=== PATIENT | male | born 1950 | race Hispanic/Latino ===

== ENCOUNTER → 2019-01-14 | Outpatient (CLI) | payer MEDICARE, OTHER ==
--- NOTE | 2019-01-14 11:53 | Diagnostic Imaging Report ---
EXAM: Cervical spine radiographs-7 views INDICATION: Status post trauma. COMPARISON: None FINDINGS: BONES: C1-C7 are visualized on the lateral view. No evidence of traumatic malalignment. There is minimal retrolisthesis of C4 on C5. No evidence of acute displaced fractures. Vertebral body heights are preserved. DISCS: Moderate degenerative disc changes at C3-C4 and mild multilevel degenerative disc changes elsewhere. JOINTS: Mild facet degenerative changes. Bilateral right greater than left neural foraminal stenosis at C2-C5. SOFT TISSUES: Unremarkable IMPRESSION: No evidence of acute traumatic abnormality. If there is clinical concern, CT of the cervical spine would be more sensitive for evaluation. Mild to moderate degenerative disc changes of the cervical spine. Signed by: Dr. Reece Duran MD on 01/14/2019 11:50 AM
== END ==
LOC: RAD 10:19
PROVIDERS: ATTEND Family Medicine
DX: S14.109A Unspecified injury at unspecified level of cervical spinal cord, initial encounter (principal)
CPT/HCPCS: 72050

== ENCOUNTER 2019-02-09 16:26 | Emergency (ER) | payer MEDICARE, OTHER ==
[~2019-02-09] VITALS: Ht 160 cm; Wt 68.0 kg
--- OUTSIDE RECORDS SUMMARY | 2019-02-09 16:29 | XMS REPORT ---
[facility] Address Unknown Phone Unavailable Care Team Providers Care Supervisor [employer] Name Role Phone CURTIS CAMARGO Unavailable Unavailable Problems This patient has no known problems. Allergies, Adverse Reactions, Alerts This patient has no known allergies or adverse reactions. Medications This patient has no known medications. Results Test Description Test Time Test Comments Text Results Atomic Results Result Comments CT BRAIN WO 2019-02-09 15:39:00 [place] [address] Patient Name: JACKY RAMSAY MR #: [id number] : 1950 Age/Sex: 68/M Req #: [id number] Adm Physician: Ordered by: CATALINA MAKI, CURTIS Ba MD Report #: [id number] Location: CT Room/Bed: Procedure: [id number] CT/CT BRAIN WO Exam Date: 02/09/19 Exam Time: 1508 REPORT STATUS: Signed CT BRAIN WO HISTORY: Left-sided weakness COMPARISON: None. TECHNIQUE: Noncontrast axial scans were obtained from skull base to the vertex. Coronal and sagittal reconstructions obtained from the axial data. One or more of the following dose reduction techniques were used: Automated exposure control, adjustment of the mA and/or kV according to patient size, and/or utilization of iterative reconstruction technique. DISCUSSION: Scalp/Skull: Unremarkable. Extra-axial spaces: An approximately 2.4 cm thick heterogeneous, isodense (relative to brain parenchyma) right hemispheric subdural collection results in up to 11 mm of right to left midline shift and mild right uncal herniation. Similar smaller 0.4 cm thick left hemispheric subdural isodense collection is also present. Brain sulci: The right hemispheric sulci are effaced. Underlying mild generalized cerebral volume loss is suspected. Ventricles: The supratentorial ventricles are displaced towards the left. The right lateral ventricle and third ventricle are slightly effaced. The fourth ventricle is unremarkable. Parenchyma: Multiple old small lacunar infarcts in the right carpenter radiata are present. Mild periventricular white matter hypodensities are likely chronic microvascular ischemic changes. Carotid siphon calcifications are present. Otherwise, no mass, parenchymal hemorrhage, or large vascular territory acute infarct. Dural sinuses: No abnormal densities. Sellar/Suprasellar region: Intact. Skull base: Intact. Incidental findings: Mild scattered paranasal sinus mucosal thickening is present. IMPRESSION: 1. Large, 2.4 cm thick right hemispheric heterogeneous, isodense subdural collection is likely a subacute subdural hematoma. This results in 11 mm of right to left midline shift and mild right uncal herniation. 2. Similar, smaller 0.4 cm thick left hemispheric subdural collection also may be a subacute subdural hematoma. 3. Otherwise, no acute intracranial abnormalities. 4. Mild generalized cerebral volume loss. Mild supratentorial chronic microvascular ischemic change. 5. Multiple old small lacunar infarcts in the right carpenter radiata. Findings discussed with Dr. Camargo at 3:53 PM on 02/09/2019 (by Dr. Brown). Signed by: Dr. Nagi Brown M.D. on 02/09/2019 3:54 PM Dictated By: NAGI BROWN MD [id number] Transcribed By: YARELY on 02/09/19 [id number] COPY TO: CURTIS CAMARGO CERVICAL SPINE 4 OR 5 VIEWS 2019-01-14 11:43:00 [place] [address] Patient Name: JACKY RAMSAY MR #: [id number] : 1950 Age/Sex: 68/M Req #: [id number] Adm Physician: Ordered by: CURTIS CAMARGO MD, MD Report #: [id number] Location: [facility] Room/Bed: Procedure: [id number] DX/CERVICAL SPINE 4 OR 5 VIEWS Exam Date: 01/14/19 Exam Time: 1056 REPORT STATUS: Signed EXAM: Cervical spine radiographs-7 views INDICATION: Status post trauma. COMPARISON: None FINDINGS: BONES: C1-C7 are visualized on the lateral view. No evidence of traumatic malalignment. There is minimal retrolisthesis of C4 on C5. No evidence of acute displaced fractures. Vertebral body heights are preserved. DISCS: Moderate degenerative disc changes at C3-C4 and mild multilevel degenerative disc changes elsewhere. JOINTS: Mild facet degenerative changes. Bilateral right greater than left neural foraminal stenosis at C2-C5. SOFT TISSUES: Unremarkable IMPRESSION: No evidence of acute traumatic abnormality. If there is clinical concern, CT of the cervical spine would be more sensitive for evaluation. Mild to moderate degenerative disc changes of the cervical spine. Signed by: Dr. Papa Hinojosa MD on 01/14/2019 11:50 AM Dictated By: PAPA HINOJOSA MD [id number] Transcribed By: YARELY on 01/14/19 1155 COPY TO: CURTIS CAMARGO
--- NOTE | 2019-02-09 16:42 | NUR ---
PATIENT TRANSPORTED TO ER ROOM 3 VIA WHEELCHAIR. CONNECTED TO BEDSIDE ELECTRICIAN POWERHOUSE, NIBP AND SPO2. DR SZYMANSKI AWARE. DR SZYMANSKI EDUCATED PATIENT AND FAMILY ON THE CURRENT PLAN OF CARE,TO BE TRANFERRED FOR HIGHER LEVEL OF CARE,VERBALIZED UNDERSTANDING.
[2019-02-09 16:58] LABS: BASOPHILS % 0.5 % (0.0-1.0); EOSINOPHILS # (AUTO) 0.3 (0.0-0.4); EOSINOPHILS % 3.9 % (0.0-6.0); HEMOGLOBIN 16.2 g/dL (14.0-18.0); LYMPHOCYTES # (AUTO) 1.2 (1.0-3.2); LYMPHOCYTES % 15.2 % (18.0-39.1); MEAN CORPUSCULAR HEMOGLOBIN 30.3 pg (28-32); MEAN CORPUSCULAR HGB CONC 35.2 g/dL (31-35); MONOCYTES # (AUTO) 0.7 (0.2-0.8); MONOCYTES % 9.2 % (4.4-11.3); NEUTROPHILS # (AUTO) 5.7 (2.1-6.9); PLATELET COUNT 317 x10e3/uL (140-360); RED BLOOD COUNT 5.35 x10e6/uL (4.3-5.7); RED CELL DISTRIBUTION WIDTH 12.5 % (11.7-14.4)
[2019-02-09 17:06] LABS: INR 0.87; PROTHROMBIN TIME 12.3 seconds (11.9-14.5)
[2019-02-09 17:14] LABS: ALANINE AMINOTRANSFERASE 18 IU/L (0-55); ALBUMIN 4.3 g/dL (3.5-5.0); ALBUMIN/GLOBULIN RATIO 1.3 (0.8-2.0); ALKALINE PHOSPHATASE 86 IU/L (40-150); ANION GAP 15.5 mmol/L (8-16); BLOOD UREA NITROGEN 11 mg/dL (7-26); BUN/CREATININE RATIO 11 (6-25); CALCIUM 9.7 mg/dL (8.4-10.2); CARBON DIOXIDE 22 mmol/L (22-29); CHLORIDE 99 mmol/L (98-107); CREATININE, SERUM 0.96 mg/dL (0.72-1.25); EST GLOMERULAR FILTRATION RATE > 60 ML/MIN (60-); GLUCOSE 97 mg/dL (74-118); POTASSIUM 4.5 mmol/L (3.5-5.1); SODIUM 132 mmol/L (136-145)
--- NOTE | 2019-02-09 17:30 | NUR ---
PATIENT AWAKE AND ALERT SITTING IN BED. RESP EVEN AND UNLABORED. SKIN WARM AND DRY. FAMILY AT BEDSIDE.
--- NOTE | 2019-02-09 17:49 | NUR ---
NOTIFIED [facility] FOR PAITENT TRANSPORT TO [facility] [facility], SPOKE WITH BELEM.
--- NOTE | 2019-02-09 17:55 | NUR ---
REPORT CALLED TO [facility], [address] [place] [address] [phone] [phone], SPOKE WITH KARLA LAWTON.
--- NOTE | 2019-02-09 18:05 | NUR ---
NOTIFIED [facility] TO MAKE RADIOLOGY DISC FOR TRANSPORT.
--- NOTE | 2019-02-09 18:14 | NUR ---
NOTIFIED KARLA NATH, [facility], [facility] 4 [address][phone], PATIENT FAMILY REQUESTING PATIENT NOT TO RECEIVE BLOOD PRODUCTS.
--- NOTE | 2019-02-09 19:42 | NUR ---
[facility] HERE ON SITE FOR TRANSFER TO [facility].
[2019-02-09 19:46] VITALS: BP 130/64
== END 2019-02-09 19:47 | disposition short-term general hospital (02) ==
LOC: ER 16:26
DX: R53.1 Weakness (principal); S06.5X0A Traumatic subdural hemorrhage without loss of consciousness, initial encounter; W18.30XA Fall on same level, unspecified, initial encounter; Y92.008 Other place in unspecified non-institutional (private) residence as the place of occurrence of the external cause; I10 Essential (primary) hypertension; E87.1 Hypo-osmolality and hyponatremia
CPT/HCPCS: 36415; 80053; 85025; 85610; 85730; 99284

== ENCOUNTER → 2019-02-09 | Outpatient (CLI) | payer MEDICARE, OTHER ==
--- NOTE | 2019-02-09 15:58 | Diagnostic Imaging Report ---
CT BRAIN WO HISTORY: Left-sided weakness COMPARISON: None. TECHNIQUE: Noncontrast axial scans were obtained from skull base to the vertex. Coronal and sagittal reconstructions obtained from the axial data. One or more of the following dose reduction techniques were used: Automated exposure control, adjustment of the mA and/or kV according to patient size, and/or utilization of iterative reconstruction technique. DISCUSSION: Scalp/Skull: Unremarkable. Extra-axial spaces: An approximately 2.4 cm thick heterogeneous, isodense (relative to brain parenchyma) right hemispheric subdural collection results in up to 11 mm of right to left midline shift and mild right uncal herniation. Similar smaller 0.4 cm thick left hemispheric subdural isodense collection is also present. Brain sulci: The right hemispheric sulci are effaced. Underlying mild generalized cerebral volume loss is suspected. Ventricles: The supratentorial ventricles are displaced towards the left. The right lateral ventricle and third ventricle are slightly effaced. The fourth ventricle is unremarkable. Parenchyma: Multiple old small lacunar infarcts in the right carpenter radiata are present. Mild periventricular white matter hypodensities are likely chronic microvascular ischemic changes. Carotid siphon calcifications are present. Otherwise, no mass, parenchymal hemorrhage, or large vascular territory acute infarct. Dural sinuses: No abnormal densities. Sellar/Suprasellar region: Intact. Skull base: Intact. Incidental findings: Mild scattered paranasal sinus mucosal thickening is present. IMPRESSION: 1. Large, 2.4 cm thick right hemispheric heterogeneous, isodense subdural collection is likely a subacute subdural hematoma. This results in 11 mm of right to left midline shift and mild right uncal herniation. 2. Similar, smaller 0.4 cm thick left hemispheric subdural collection also may be a subacute subdural hematoma. 3. Otherwise, no acute intracranial abnormalities. 4. Mild generalized cerebral volume loss. Mild supratentorial chronic microvascular ischemic change. 5. Multiple old small lacunar infarcts in the right carpenter radiata. Findings discussed with Dr. Camargo at 3:53 PM on 02/09/2019 (by Dr. Brown). Signed by: Dr. Nagi Brown M.D. on 02/09/2019 3:54 PM
== END ==
LOC: CT 14:34
PROVIDERS: ATTEND Family Medicine
DX: I69.898 Other sequelae of other cerebrovascular disease (principal); I10 Essential (primary) hypertension; D64.9 Anemia, unspecified; J45.909 Unspecified asthma, uncomplicated
CPT/HCPCS: 70450

== ENCOUNTER → 2020-05-28 | Outpatient (CLI) | payer MEDICARE ==
--- NOTE | 2020-05-28 08:31 | Diagnostic Imaging Report ---
EXAM: US ABDOMEN COMPLETE DATE: 05/28/2020 8:12 AM INDICATION: ^ABD PAIN COMPARISON: None TECHNIQUE: Transverse and longitudinal li scale and color doppler sonographic images of the abdomen were obtained. FINDINGS: LIVER 13.0 cm in the right midclavicular line. Liver is diffusely echogenic, limiting sensitivity for underlying lesion detection. Normal contours are noted. No definite mass is identified. SPLEEN 8.9 cm in maximum diameter. Normal echogenicity, no masses. GALLBLADDER No gallbladder wall thickening, distension, stone, or pericholecystic fluid. Small amount of dependent sludge is noted. Negative reported sonographic Noriega's sign. BILE DUCTS No intra nor extra-hepatic biliary dilation. Common bile duct measures 0.3cm PANCREAS: Visualized portions are normal. RIGHT KIDNEY: 8.9 cm Echogenicity: Normal Collecting System: No hydronephrosis Stones: None Cyst/Mass: None LEFT KIDNEY: 9.9 cm Echogenicity: Normal Collecting System: No hydronephrosis Stones: None Cyst/Mass: None VESSELS: Aorta: Not well visualized due to overlying bowel gas. Inferior Vena Cava: Visualized portions are normal Main Portal Vein: 1.1 cm, normal size with hepatopetal flow. FREE FLUID: None IMPRESSION: 1. Diffuse severe hepatic steatosis. 2. Mild dependent gallbladder sludge. No ultrasound evidence of acute cholecystitis. Signed by: Tad Escamilla MD on 05/28/2020 8:28 AM
== END ==
LOC: US 07:47
PROVIDERS: ATTEND Family Medicine
DX: R10.9 Unspecified abdominal pain (principal); K76.0 Fatty (change of) liver, not elsewhere classified; K82.9 Disease of gallbladder, unspecified
CPT/HCPCS: 76700

== ENCOUNTER → 2020-06-20 | Outpatient (CLI) | payer MEDICARE ==
--- NOTE | 2020-06-20 20:30 | Diagnostic Imaging Report ---
Hepatobiliary Scan with Gallbladder Ejection Fraction Reason for exam: Abdominal pain. RUQ pain. Report: Following intravenous administration of 6.6 millicuries of Tc-99m mebrofenin, dynamic images of the abdomen in the anterior projection were obtained through 60 minutes. Sincalide (CCK analog) 1.4 micrograms was administered intravenously over 30 minutes with additional imaging for determination of gallbladder ejection fraction. Perfusion to the liver is normal. Extraction of tracer from the blood pool by the liver parenchyma is normal. Tracer is seen promptly within the biliary tract. The gallbladder begins to fill by 22 minutes post-injection of tracer and fills adequately. Tracer is seen in the small bowel by 15 minutes. The gallbladder ejection fraction with administration of sincalide is 96% (normal greater than 40%). Impression: 1. Filling of the gallbladder excludes the diagnosis of acute cystic duct obstruction/acute cholecystitis. 2. Normal gallbladder ejection fraction of 96% does not support the clinical diagnosis of chronic cholecystitis/gallbladder dyskinesia. Signed by: Dr. Ruth Teran M.D. on 06/20/2020 8:27 PM
== END ==
LOC: NM 13:06
PROVIDERS: ATTEND Family Medicine
DX: R10.11 Right upper quadrant pain (principal)
CPT/HCPCS: 78227; A9537